=== PATIENT | female | born 1995 | race Caucasian/White ===

== ENCOUNTER 2017-10-16 10:15 | Emergency (ER) | payer SELFPAY ==
[2017-10-16 11:48] LABS: APPEARANCE,URINE CLEAR; BILIRUBIN,URINE NEGATIVE (NEGATIVE); GLUCOSE, URINE NEGATIVE (NEGATIVE); KETONES,URINE NEGATIVE (NEGATIVE); LEUKOCYTE ESTERASE,URINE NEGATIVE (NEGATIVE); NITRITE,URINE NEGATIVE (NEGATIVE); PROTEIN,URINE NEGATIVE (NEGATIVE); URINE SPECIFIC GRAVITY 1.017; UROBILINOGEN,URINE NEGATIVE mg/dL (<2.0)
--- NOTE | 2017-10-16 13:20 | ER Document Report ---
ED GI/ - General Chief Complaint: Pain With Urination Stated Complaint: ABDOMINAL PAIN Time Seen by Provider: 10/16/17 10:49 Mode of Arrival: Ambulatory Information source: Patient Notes: 22-year-old female presented to ED for pain and pressure with urination. She states this started a week ago. She states she used some Pyridium but the pressure continued. She states her last menstrual period started today. She states she has a dull ache in the bladder area. TRAVEL OUTSIDE OF THE [place] IN LAST 30 DAYS: No - HPI Patient complains to provider of: Other - Suprapubic pain Onset: Last week Timing/Duration: Gradual, Persistent Quality of pain: Achy, Dull Severity at maximum: Moderate Severity in ED: Moderate Pain Level: 4 Location: Suprapubic Vaginal bleeding (Compared to normal period): Similar LMP: Today Associated symptoms: Other - Suprapubic pain just started her menses today. denies: Nausea, Odor, Radiates to back, Radiates to chest, Radiates to vagina, Radiates to shoulder Exacerbated by: Denies Relieved by: Denies Similar symptoms previously: Yes Recently seen / treated by doctor: No - Related Data Allergies/Adverse Reactions: No Known Allergies Allergy (Verified 10/16/17 10:19) Past Medical History - Social History Smoking Status: Current Every Day Smoker Cigarette use (# per day): Yes - Pack per day Chew tobacco use (# tins/day): No Smoking Education Provided: Yes - Less than 2 minutes Frequency of alcohol use: Social Drug Abuse: None Occupation: None Lives with: Family Family History: Arthritis, CVA, Hypertension, Malignancy. denies: CAD, COPD, DM , Hyperlipidemia, Thyroid Disfunction Patient has suicidal ideation: No Patient has homicidal ideation: No - Past Medical History Cardiac Medical History: Reports: None Pulmonary Medical History: Reports: None EENT Medical History: Reports: None Neurological Medical History: Reports: None Endocrine Medical History: Reports: None Renal/ Medical History: Reports: Other - Prone to UTIs Malignancy Medical History: Reports: None GI Medical History: Reports: None Musculoskeltal Medical History: Reports None Skin Medical History: Reports None Psychiatric Medical History: Reports: None Traumatic Medical History: Reports: None Infectious Medical History: Reports: None Past Surgical History: Reports: Hx Oral Surgery - Wisdoms removed - Immunizations Immunizations up to date: Yes Review of Systems - Review of Systems Constitutional: No symptoms reported EENT: No symptoms reported Cardiovascular: No symptoms reported Respiratory: No symptoms reported Gastrointestinal: No symptoms reported Genitourinary: Other - Suprapubic pain dull achy Female Genitourinary: Last menstrual period - Started her menses today Musculoskeletal: No symptoms reported Skin: No symptoms reported Hematologic/Lymphatic: No symptoms reported Neurological/Psychological: No symptoms reported -: Yes All other systems reviewed and negative Physical Exam - Vital signs Vitals: Temp Pulse Resp BP Pulse Ox 99.0 F 107 H 13 123/86 H 98 10/16/17 10:19 10/16/17 10:19 10/16/17 10:19 10/16/17 10:19 10/16/17 10:19 Interpretation: Normal - General General appearance: Appears well, Alert - HEENT Head: Normocephalic, Atraumatic Eyes: Normal Pupils: PERRL - Respiratory Respiratory status: No respiratory distress Chest status: Nontender Breath sounds: Normal Chest palpation: Normal - Cardiovascular Rhythm: Regular Heart sounds: Normal auscultation Murmur: No - Abdominal Inspection: Normal Distension: No distension Bowel sounds: Normal Tenderness: Nontender Organomegaly: No organomegaly - Back Back: Normal, Nontender - Extremities General upper extremity: Normal inspection, Nontender, Normal color, Normal ROM , Normal temperature General lower extremity: Normal inspection, Nontender, Normal color, Normal ROM , Normal temperature, Normal weight bearing. No: Isaias's sign - Neurological Neuro grossly intact: Yes Cognition: Normal Orientation: AAOx4 Koki Coma Scale Eye Opening: Spontaneous Koki Coma Scale Verbal: Oriented Brooker Coma Scale Motor: Obeys Commands Brooker Coma Scale Total: 15 Speech: Normal Motor strength normal: LUE, RUE, LLE, RLE Sensory: Normal - Psychological Associated symptoms: Normal affect, Normal mood - Skin Skin Temperature: Warm Skin Moisture: Dry Skin Color: Normal Course - Re-evaluation Re-evalutation: 10/16/17 21:07 Urine test was negative discussed the need for pelvic exam for her symptoms. Patient agreed to the pelvic exam and then while he was being set up she stated that she did not want a pelvic exam she just wanted to go home and she would follow-up with her primary doctor, the health department, or [facility]. She states she did not want the pelvic exam at this time because she was by herself and her was at work and she did not want to do without somebody else with her. I offered to have one of the staff members hold her hand and she said no she just wanted to go home. Patient was discharged home with instructions to please follow-up with her primary doctor. - Vital Signs Vital signs: Temp Pulse Resp BP Pulse Ox 98.9 F 100 16 120/84 99 10/16/17 13:26 10/16/17 13:26 10/16/17 13:26 10/16/17 13:26 10/16/17 13:26 - Laboratory Laboratory results interpreted by me: 10/16/17 11:24 Urine Blood SMALL H Discharge - Discharge Clinical Impression: Pelvic pain Condition: Stable Disposition: HOME, SELF-CARE Instructions: Family Physicians / Practices, [facility] [place] Additional Instructions: PELVIC PAIN: There are many causes of pain in the pelvic area. The cause could be the tubes, ovaries, uterus, intestines, appendix, pelvic muscles and connective tissue, or the urinary tract. The cause of your pelvic pain is not clear. However, it seems safe to treat you outside the hospital. If the pain sounds like a temporary problem, we sometimes wait to see if it goes away. Other patients may need additional tests, such as pelvic ultrasound or cultures. Conditions may change. Call us or come back for reexamination if any problems occur, such as: (1) Pain that becomes more severe, steady, or becomes concentrated in one specific area. Also, pain that is more severe with movement or coughing. (2) Vomiting that persists or becomes more frequent. (3) Blood in the vomitus, urine, or bowel movements. Blood in the stool may have a tarry or black appearance. (4) Shaking chills or fever greater than 100 degrees. (5) The abdomen becomes more distended or swollen. (6) Bowel movements cease. (7) Heavy vaginal bleeding. You have elected to not have your pelvic exam completed today. Your urine is negative for a UTI. We have discussed the fact that you need to get this pelvic done soon in case you do have some inflammatory changes that she would need antibiotics for. He states she did not have insurance to pay for them at this time but she will be getting it and you will take care of this problem. FOLLOW-UP CARE: If you have been referred to a physician for follow-up care, call the physician s office for an appointment as you were instructed or within the next two days. If you experience worsening or a significant change in your symptoms, notify the physician immediately or return to the Emergency Department at any time for re-evaluation. Forms: Elevated Blood Pressure, Smoking Cessation Education, Return to School Referrals: [facility] [Provider Group] - Follow up as needed
[2017-10-16 13:28] VITALS: BP 120/84
== END 2017-10-16 13:26 | disposition home or self-care (01) ==
LOC: ER 10:15
DX: R10.2 Pelvic and perineal pain (principal); R30.9 Painful micturition, unspecified; R10.9 Unspecified abdominal pain; Z79.899 Other long term (current) drug therapy; F17.210 Nicotine dependence, cigarettes, uncomplicated
CPT/HCPCS: 81001; 87086; 99283

== ENCOUNTER 2019-10-10 02:50 | Emergency (ER) | payer OTHER ==
[2019-10-10] MEDS ORDERED: ACETAMINOPHEN 325 MG TABLET PO ONE (03:24)
[2019-10-10 03:59] LABS: ABSOLUTE LYMPHOCYTES (AUTO) 1.2 10^3/uL (0.5-4.7); ABSOLUTE MONOCYTES (AUTO) 0.9 10^3/uL (0.1-1.4); ABSOLUTE NEUT (AUTO) 8.3 10^3/uL (1.7-8.2); BASOPHILS % (AUTO) 0.2 % (0-2); EOSINOPHILS % (AUTO) 0.2 % (0-6); HEMATOCRIT 40.5 % (36.0-47.0); LYMPHOCYTES % (AUTO) 11.4 % (13-45); MEAN CORPUSCULAR HEMOGLOBIN 36.6 pg (27.0-33.4); MEAN CORPUSCULAR HGB CONC 34.7 g/dL (32.0-36.0); MEAN CORPUSCULAR VOLUME 105 fl (80-97); MONOCYTES % (AUTO) 8.7 % (3-13); PLATELET COUNT 259 10^3/uL (150-450); RED BLOOD COUNT 3.84 10^6/uL (3.72-5.28); RED CELL DISTRIBUTION WIDTH 12.8 % (11.5-14.0); SEGMENTED NEUTROPHILS % (AUTO) 79.5 % (42-78); TOTAL CELLS COUNTED % (AUTO) 100 %; WHITE BLOOD COUNT 10.5 10^3/uL (4.0-10.5)
[2019-10-10] MEDS ORDERED: KETOROLAC TROMETHAMINE 60 MG/2 ML SDV IM ONE (04:07)
[2019-10-10] MEDS ORDERED: ONDANSETRON 4 MG TAB.RAPDIS PO ONE (04:08)
[2019-10-10] MEDS ORDERED: HYDROCODONE/ACETAMINOPHEN 5-325 MG TABLET PO ONE (04:09)
[2019-10-10 04:16] LABS: ALBUMIN 4.1 g/dL (3.5-5.0); ALKALINE PHOSPHATASE 76 U/L (38-126); ANION GAP 11 (5-19); ASPARTATE AMINO TRANSFERASE 55 U/L (14-36); BILIRUBIN,TOTAL 1.2 mg/dL (0.2-1.3); BLOOD UREA NITROGEN 12 mg/dL (7-20); CALCIUM 9.3 mg/dL (8.4-10.2); CARBON DIOXIDE 25 mmol/L (22-30); CHLORIDE 100 mmol/L (98-107); GLUCOSE 96 mg/dL (75-110); POTASSIUM 3.9 mmol/L (3.6-5.0); TOTAL PROTEIN 7.1 g/dL (6.3-8.2)
[2019-10-10] MEDS ORDERED: ONDANSETRON HCL INJ/PF 4 MG/2 ML SDV IV ONE (05:21)
[2019-10-10] MEDS ORDERED: FENTANYL CITRATE INJ/PF 100 MCG/2 ML AMPUL IV ONE (05:21)
[2019-10-10] MEDS ORDERED: NORMAL SALINE 1000 ML 1,000 ML IV ONE (05:22)
--- NOTE | 2019-10-10 06:09 | RADIOLOGY REPORT (SQ) ---
Ultrasound OB transvaginal on 10/10/2019 at 5:25 AM CLINICAL INDICATION: , vaginal bleeding COMPARISON: None FINDINGS: Multiple sonographic images are obtained throughout the pelvis by transvaginal approach, both transverse and sagittal images are obtained. Uterus measures approximately 11.5 x 5.2 x 4.7 cm. Right ovary measures approximately 1.9 x 1.8 x 1.7 cm. Left ovary measures approximately 2.4 x 1.6 x 1.5 cm. No adnexal mass or fluid collection is noted. No free fluid is noted. There is irregular gestational sac with yolk sac and pole within the endometrium with estimated gestational age by crown-rump length measurement of approximate seven week one day gestation with a crown-rump length measuring over 1 cm without cardiac activity. There is surrounding fluid in the endometrium and the appearance is consistent with demise and spontaneous in progress. There are still retained products of conception in the uterus. Recommend clinical follow-up and short-term follow-up imaging if indicated. IMPRESSION: Findings consistent with demise and spontaneous in progress with still retained products of conception in the uterus. Recommend appropriate clinical follow-up.
--- NOTE | 2019-10-10 06:36 | ER Document Report ---
ED General - General Chief Complaint: OB Problem (<20wks) Stated Complaint: VAGINAL BLEEDING,POSSIBLE MISCARRIAGE Time Seen by Provider: 10/10/19 05:09 Notes: Patient is a 24-year-old female G1, P0 presents to the emergency department for vaginal bleeding. States she started with heavy vaginal bleeding approximately 3 hours ago. States she is passing large clots and is unsure of the amount of sanitary napkins she has gone through. States her last menstrual period was approximately 1 month ago. States it was only one day and "very light." States she has taken a total of 7 at home tests and they are all positive. States she does have an appointment with an [facility] next week for confirmation of . Patient voices generalized lower abdominal intermittent cramping as well as nausea and vomiting. Patient's denying any fevers. TRAVEL OUTSIDE OF THE [place] IN LAST 30 DAYS: No - Related Data Allergies/Adverse Reactions: No Known Allergies Allergy (Verified 10/16/17 10:19) Past Medical History - General Information source: Patient - Social History Smoking Status: Current Some Day Smoker Family History: Arthritis, CVA, Hypertension, Malignancy. denies: CAD, COPD, DM, Hyperlipidemia, Thyroid Disfunction Patient has suicidal ideation: No Patient has homicidal ideation: No Renal/ Medical History: Denies: Hx Peritoneal Dialysis Past Surgical History: Reports: Hx Oral Surgery - Wisdoms removed - Immunizations Immunizations up to date: Yes Review of Systems - Review of Systems Constitutional: denies: Fever EENT: No symptoms reported Cardiovascular: No symptoms reported Respiratory: No symptoms reported Gastrointestinal: See HPI Genitourinary: See HPI Female Genitourinary: See HPI Musculoskeletal: No symptoms reported Skin: No symptoms reported Hematologic/Lymphatic: No symptoms reported Neurological/Psychological: No symptoms reported Physical Exam - Vital signs Vitals: Temp Pulse Resp BP Pulse Ox 98.4 F 88 20 111/79 100 10/10/19 02:55 10/10/19 02:55 10/10/19 02:55 10/10/19 02:55 10/10/19 02:55 - Notes Notes: GENERAL: Alert, interacts well. Intermittently grimace holding lower abdomen. HEAD: Normocephalic, atraumatic. EYES: Pupils equal, round, and reactive to light. Extraocular movements intact. ENT: Oral mucosa moist, tongue midline. NECK: Full range of motion. Supple. Trachea midline. LUNGS: Clear to auscultation bilaterally, no wheezes, rales, or rhonchi. No respiratory distress. HEART: Regular rate and rhythm. No murmur ABDOMEN: Soft, generalized bilateral lower pelvic pain. Non-distended. Bowel sounds present in all 4 quadrants. EXTREMITIES: Moves all 4 extremities spontaneously. No edema, normal radial and dorsalis pedis pulses bilaterally. No cyanosis. BACK: no cervical, thoracic, lumbar midline tenderness. No saddle anesthesia, normal distal neurovascular exam. NEUROLOGICAL: Alert and oriented x3. Normal speech. cranial nerves II through XII grossly intact PSYCH: Normal affect, normal mood. SKIN: Warm, dry, normal turgor. No rashes or lesions noted. Course - Re-evaluation Re-evalutation: 10/10/19 06:36 Laboratory 10/10/19 10/10/19 10/10/19 03:45 03:45 03:45 WBC 10.5 RBC 3.84 Hgb 14.0 Hct 40.5 MCV 105 H MCH 36.6 H MCHC 34.7 RDW 12.8 Plt Count 259 Lymph % (Auto) 11.4 L [place] % (Auto) 8.7 Eos % (Auto) 0.2 Baso % (Auto) 0.2 Absolute Neuts (auto) 8.3 H Absolute Lymphs (auto) 1.2 Absolute Monos (auto) 0.9 Absolute Eos (auto) 0.0 Absolute Basos (auto) 0.0 Seg Neutrophils % 79.5 H Sodium 136.1 L Potassium 3.9 Chloride 100 Carbon Dioxide 25 Anion Gap 11 BUN 12 Creatinine 0.58 Est GFR ( Amer) > 60 Est GFR (MDRD) Non-Af > 60 Glucose 96 Calcium 9.3 Total Bilirubin 1.2 Direct Bilirubin 0.0 Neonat Total Bilirubin Not Reportable Neonat Direct Bilirubin Not Reportable Neonat Indirect Bili Not Reportable AST 55 H ALT 34 Alkaline Phosphatase 76 Total Protein 7.1 Albumin 4.1 Lipase 67.1 Beta HCG, Quant Total Beta HCG Blood Type O POSITIVE Rhogam Indicated RHOGAM NOT INDICATED 10/10/19 03:45 WBC RBC Hgb Hct MCV MCH MCHC RDW Plt Count Lymph % (Auto) [place] % (Auto) Eos % (Auto) Baso % (Auto) Absolute Neuts (auto) Absolute Lymphs (auto) Absolute Monos (auto) Absolute Eos (auto) Absolute Basos (auto) Seg Neutrophils % Sodium Potassium Chloride Carbon Dioxide Anion Gap BUN Creatinine Est GFR ( Amer) Est GFR (MDRD) Non-Af Glucose Calcium Total Bilirubin Direct Bilirubin Neonat Total Bilirubin Neonat Direct Bilirubin Neonat Indirect Bili AST ALT Alkaline Phosphatase Total Protein Albumin Lipase Beta HCG, Quant 3424.50 H Total Beta HCG POSITIVE Blood Type Rhogam Indicated Transvaginal US 10/10/19 05:18 IMPRESSION: Findings consistent with demise and spontaneous in progress with still retained products of conception in the uterus. Recommend appropriate clinical follow-up. Pelvic exam performed, Maria D zavaleta. Obvious blood in cul-de-sac, cervix able to be visualized with no tissue noted in os. Patient voices after fentanyl she does feel a lot better. Patient remains hemodynamically stable. I discussed with her at length bleeding precautions and when to return to the emergency department. I have also discussed her need to follow-up with the [facility] [facility], [facility], primary care provider, return to the emergency department for repeat laboratory testing of her hCG. Of also discussed potential need for repeat ultrasound. Patient voices she [place] Patient stable for discharge. - Vital Signs Vital signs: Temp Pulse Resp BP Pulse Ox 98.4 F 88 12 136/80 H 97 10/10/19 02:55 10/10/19 02:55 10/10/19 05:10 10/10/19 05:10 10/10/19 05:10 - Laboratory Result Diagrams: 10/10/19 03:45 10/10/19 03:45 Laboratory results interpreted by me: 10/10/19 10/10/19 10/10/19 03:45 03:45 03:45 MCV 105 H MCH 36.6 H Lymph % (Auto) 11.4 L Absolute Neuts (auto) 8.3 H Seg Neutrophils % 79.5 H Sodium 136.1 L AST 55 H Beta HCG, Quant 3424.50 H Discharge - Discharge Clinical Impression: Incomplete miscarriage Condition: Stable Disposition: HOME, SELF-CARE Instructions: Miscarriage Impending ([facility]) Additional Instructions: As we discussed you have been seen and treated in the emergency department for an impending miscarriage. It is very important that you follow-up with the [facility], and [facility] provider for repeat laboratory testing and potentially an ultrasound. It is also important that you return to the emergency department should he continue with heavy vaginal bleeding, feel lightheaded, dizzy, weak, short of breath. Please take [id number] ibuprofen or Motrin for generalized pain. You can take prescribed narcotics for breakthrough pain. Prescription narcotics do have Tylenol in them so do not take any [id number] Tylenol with this medication. Phone numbers for an [facility] in our area and the health district are provided in this packet. Please follow-up in the next 24 to 48 hours. Please return to the emergency department for any concerns. Prescriptions: Hydrocodone/Acetaminophen [Burden 5-325 mg Tablet] 1 tab PO Q6 PRN #20 tablet PRN Reason: Forms: Return to Work, Special Work Note [facility] - Follow up as needed WON STORY MD [ACTIVE STAFF] - Follow up as needed
[2019-10-10 07:02] VITALS: BP 136/80
== END 2019-10-10 07:25 | disposition home or self-care (01) ==
LOC: ER 02:50
DX: O03.4 Incomplete spontaneous abortion without complication (principal); R10.2 Pelvic and perineal pain; R11.2 Nausea with vomiting, unspecified; F17.200 Nicotine dependence, unspecified, uncomplicated
CPT/HCPCS: 99284; 96372; 96361; 96374; 96375; 86900; 86901; 36415; 84702; 83690; 85025; 80053; 76817; 93976; J1885; S0119; J3010; J2405; J7030